=== PATIENT | female | born 1980 | race Caucasian/White ===

== ENCOUNTER → 2018-03-18 09:48 | Outpatient (CLI) | payer OTHER, SELFPAY | PROVIDERS: Visit Provider Physician Assistant | DX: R68.89 Other general symptoms and signs (principal) | CPT/HCPCS: 87400 ==

== ENCOUNTER 2020-05-30 15:29 | Observation (INO) | payer OTHER, SELFPAY ==
[2020-05-30] VITALS (8 sets, daily range): BP systolic 115–148; BP diastolic 55–85; PULSE 67–111; RESP 12–17; TEMP 36.2–36.9; O2SAT 95–99; BMI 29.0
--- NOTE | 2020-05-30 | PATH_ITS ---
[facility] Accession Number: [id number] . 01 Material submitted: . OVARY/FALLOPIAN TUBE - LEFT OVARY AND FALLOPIAN TUBE . 01 Clinical history: . SEND BY [facility] FOR POSSIBLE APPENDIX ISSUES . 02 Diagnosis: Left Ovary and Fallopian Tube, Salpingo-oophorectomy: 1. Mature cystic teratoma (dermoid cyst). 2. Fallopian tube with paratubal cyst. 3. No evidence of malignancy. MRV 06/06/2020 0920 Local . 02 Electronically signed: . Carmen Spann MD, Pathologist NPI- [id number] . 01 Gross description: . The specimen is received in formalin, labeled left ovary and tube and consists of multiple ley-pink cyst fragments measuring 10.0 x 9.0 x 5.0 cm in aggregate. The external surface is ley-pink and wrinkled. The inner lining is ley-pink and smooth to granular with no papillary excrescences. The cyst contains a ley-white sebaceous material admixed with ley-brown hair. The cyst also displays focal areas of bone. The wall thickness ranges from 0.1 to 0.3 cm. Also received is a 5.0 cm in length by 0.8 cm in diameter fallopian tube. The serosa is pink-purple and smooth with a 0.7 x 0.6 x 0.5 cm paratubal cyst. Sectioning reveals a ley mucosa and a stellate lumen measuring 0.3 cm in diameter. [employer] sections are submitted. . A1-A5: scheduling representative cyst (A5 following decalcification). A6: fallopian tube, margin (blue), central cross-sections and bisected fimbria. ([id number]) /MRV 06/05/2020 1414 Local . 02 Pathologist provided ICD-10: D27.9 . 02 CPT . 522046 Performed at: 01 [facility] [address] [place] [address], [place], [place] [id number] MD Benitez Mark MD Phone: [phone] Performed at: 02 [facility] [address] [place], [place] [id number] MD Carmen Spann MD Phone: [phone]
--- NOTE | 2020-05-30 15:38 | DI.CT.S_ITS ---
PROCEDURE: CT ABDOMEN PELVIS W CON INDICATIONS: Right lower quadrant abdominal pain eval for appy TECHNIQUE: After the administration of intravenous contrast, 5 mm thick sections acquired from the diaphragm to the symphysis. 5 mm coronal and sagittal reformats were acquired. For radiation dose reduction, the following was used: automated exposure control, adjustment of mA and/or kV according to patient size. COMPARISON: None. FINDINGS: Image quality: Excellent. ABDOMEN: Lung bases: Lung bases are clear. Heart size is normal. Solid organs: Liver is normal in size and enhancement. Gallbladder is unremarkable. Biliary system is non dilated. Pancreas enhances normally. Spleen is normal in size and enhancement. No adrenal nodules. Kidneys demonstrate normal size and enhancement, without hydronephrosis. Peritoneum and bowel: Bowel loops demonstrate normal wall thickness and caliber. The appendix is not dilated, (2/63). No free fluid or air. Nodes and vessels: No retroperitoneal or mesenteric adenopathy by size criteria. Aorta and inferior vena cava are normal in size. Miscellaneous: Tiny fat containing periumbilical hernia. PELVIS: Genitourinary: Bladder wall thickness is normal. Large midline pelvic mass which appears to originate from the left ovary measuring 9.4 x 8.9 x 8 cm, (2/72 and 5/46). The mass contains macroscopic fat and calcifications. The lesion is well-circumscribed and has mass effect on the urinary bladder. This is consistent with a mature teratoma. The right ovary appears normal. Miscellaneous: No inguinal hernias or adenopathy. Bones: No suspicious bony lesions. Minimal scoliosis. No vertebral body compression fractures. IMPRESSION: 1. Large pelvic mass measuring 9.4 cm containing macroscopic fat and calcifications. Imaging findings consistent with a mature teratoma. The mass is located midline and appears to originate off of the left ovary. This could predispose to ovarian torsion. If clinically indicated consider further evaluation with pelvic ultrasound Doppler. Gynecological consultation is recommended. 2. No free fluid is seen. 3. Normal appendix. Comment: Findings were discussed with Dr. Harley Lundy at the time of dictation. Dictated by: Jone Anders M.D. on 05/30/2020 at 16:53 Approved by: Jone Anders M.D. on 05/30/2020 at 17:03
--- NOTE | 2020-05-30 15:44 | ED.GENADULT ---
HPI - General Adult <Harley Lundy DO - Last Filed: 05/31/20 07:00> General Chief complaint: Abdominal Pain Stated complaint: sent by [facility] for possible appendix issues Time Seen by Provider: 05/30/20 15:36 Source: patient Mode of arrival: Ambulatory Limitations: no limitations History of Present Illness HPI narrative: Patient is a 39-year-old female was sent over from the walk-in clinic for evaluation of right lower quadrant/right-sided back pain. She states that the symptoms started a couple days ago has been worsening since then. She denies any fevers. No urinary symptoms. No change in bowel habits. No nausea vomiting. Had a uterine ablation several years ago so no longer has menstrual cycles. She is not on control. No prior abdominal surgeries. Related Data Home Medications Medication Instructions Recorded Confirmed No Known Home Medications 03/18/18 05/31/20 Allergies Allergy/AdvReac Type Severity Reaction Status Date / Time Penicillins Allergy rash Verified 05/30/20 15:39 Review of Systems <DO Colin Gonzales Last Filed: 05/31/20 07:00> Constitutional Constitutional: Denies fever(s) Cardiovascular Cardiovascular: Denies chest pain and Denies dyspnea Respiratory Respiratory: Denies dyspnea Gastrointestinal Gastrointestinal: Reports abdominal pain, Denies change in bowel habits, Denies nausea and Denies vomiting Genitourinary Genitourinary: Denies dysuria Genitourinary: Denies dysuria Musculoskeletal Musculoskeletal: Denies arthralgias and Denies myalgias Integumentary/Breasts Skin/Breast: Denies lesions and Denies rash Neurologic Neurologic: Denies behavioral changes Psychiatric Psychiatric: Denies behavioral changes Hematologic/Lymphatic On Anticoagulants: No Allergic/Immunologic Allergic/Immunologic: Denies urticaria Patient History <DO Colin Gonzales Last Filed: 05/31/20 07:00> Medical History (Updated 05/30/20 @ 18:40 by Harley Lundy DO) Healthy adult Surgical History (Updated 05/30/20 @ 20:59 by Prerna Fernández MD) History of endometrial ablation Social History household members: family Smoking Status: Current every day smoker alcohol intake: current Smoking Status: Current every day smoker Substance Use Type: does not use Exam <DO Colin Gonzales Last Filed: 05/31/20 07:00> Initial Vital Signs Initial Vital Signs: Vital Signs Temperature 98.4 F 05/30/20 15:37 Pulse Rate 111 H 05/30/20 15:37 Respiratory Rate 12 05/30/20 15:37 Blood Pressure 148/85 H 05/30/20 15:37 Pulse Oximetry 99 05/30/20 15:37 Const General: cooperative and comfortable Limitations: mental status not altered HENMT Head: normal to inspection and normocephalic Resp Effort & Inspection: normal respiratory effort Cardio Rate: tachycardic Rhythm: regular rhythm GI Inspection: non-distended Palpation: soft and tender (Right lower quadrant) Back/Spine/Pelvis Back: CVA tenderness right Skin Lesions: no lesions Rashes: no rashes Neuro General: patient alert and patient awake Cognition: normal cognition Speech: speech normal Extrem General: normal to inspection, capillary refill normal and No edema Psych Appearance: grossly normal and well kempt <Jimenez Crabtree DO - Last Filed: 05/31/20 00:24> Initial Vital Signs Initial Vital Signs: Vital Signs Temperature 98.4 F 05/30/20 15:37 Pulse Rate 111 H 05/30/20 15:37 Respiratory Rate 12 05/30/20 15:37 Blood Pressure 148/85 H 05/30/20 15:37 Pulse Oximetry 99 05/30/20 15:37 Course <Harley Lundy DO - Last Filed: 05/31/20 07:00> Orders Ordered: ED Orders 05/31/20 05:12 Complete Blood Count AUTO DIFF Routine Hydromorphone HCl (Hydromorphone 1 Mg Inj) 1 mg IV Q4HR PRN PRN Reason: Pain, Severe (7-10) Last Admin: 05/31/20 05:18 Dose: 1 mg Documented by: Admin: 05/31/20 00:45 Dose: 1 mg Documented by: SANDRA Lactated Ringer's (Lactated Ringers) 1,000 mls @ 100 mls/hr IV CONT JEAN PIERRE Last Admin: 05/31/20 00:45 Dose: 100 mls/hr Documented by: SANDRA Ketorolac Tromethamine (Ketorolac 30 Mg/Ml Vial) 30 mg IV Q6HR PRN PRN Reason: Pain, Moderate (4-6) Stop: 06/05/20 23:22 Naloxone HCl (Naloxone 0.4 Mg/Ml Vial) 0.2 mg IV Q2MIN PRN PRN Reason: Opiate Reversal Ondansetron HCl (Ondansetron 4 Mg/2 Ml Inj) 4 mg IV Q6HR PRN PRN Reason: Nausea And Vomiting Oxycodone/Acetaminophen (Oxycodone/Acetaminophen 5/325 Tablet) 2 tab PO Q4HR PRN PRN Reason: Pain, Severe (7-10) Last Admin: 05/31/20 03:35 Dose: 2 tab Documented by: SANDRA Discontinued Medications Acetaminophen (Acetaminophen 325 Mg Tablet) 650 mg PO PACUNOW PRN PRN Reason: Pain, Mild (1-3) Bupivacaine HCl/Epinephrine Bitart (Bupivacaine 0.5% W/ Epi (Pf) 30 Ml Vial) 30 ml INJ NOW ONE Stop: 05/30/20 22:37 Last Admin: 05/30/20 22:37 Dose: 10 ml Documented by: BEE Fentanyl (Fentanyl 100 Mcg/2 Ml Inj) 0 mcg IV Q5M PRN PRN Reason: Pain, Moderate (4-6) Last Admin: 05/30/20 23:37 Dose: 50 mcg Documented by: Admin: 05/30/20 23:31 Dose: 50 mcg Documented by: MIESHA Hydromorphone HCl (Hydromorphone 0.5 Mg Inj) 0.5 mg IV NOW ONE Stop: 05/30/20 19:20 Last Admin: 05/30/20 19:25 Dose: 0.5 mg Documented by: SHAKIRA Hydromorphone HCl (Hydromorphone 2 Mg Inj) 0 mg IV Q5MIN PRN PRN Reason: Pain, Mild (1-3) Lactated Ringer's (Lactated Ringers) 1,000 mls @ 100 mls/hr IV CONT [facility] Last Admin: 05/31/20 00:57 Dose: Not Given Documented by: SANDRA Lactated Ringer's (Lactated Ringers) 1,000 mls @ 42 mls/hr IV CONT JEAN PIERRE Last Admin: 05/31/20 00:57 Dose: Not Given Documented by: SANDRA Ketorolac Tromethamine (Ketorolac 60 Mg/2 Ml Vial) 30 mg IV NOW ONE Stop: 05/30/20 15:50 Last Admin: 02/25/21 16:05 Dose: 30 mg Documented by: MOY Ondansetron HCl (Ondansetron 4 Mg/2 Ml Inj) 4 mg IV NOW PRN PRN Reason: Nausea And Vomiting Oxycodone HCl (Oxycodone Ir 5 Mg Tablet) 5 mg PO PACUNOW PRN PRN Reason: Mild or moderate pain Last Admin: 05/30/20 23:30 Dose: 5 mg Documented by: MIESHA Vital Signs Vital signs: Vital Signs - 8 hr 05/30/20 23:20 05/30/20 23:25 05/30/20 23:35 Temperature 97.2 F L Pulse Rate 82 80 87 Respiratory Rate 12 14 13 Blood Pressure 116/55 L 115/70 119/67 Pulse Oximetry 96 97 99 05/30/20 23:50 Temperature Pulse Rate 84 Respiratory Rate 12 Blood Pressure 122/73 Pulse Oximetry 99 <Jimenez Crabtree, - Last Filed: 05/31/20 00:24> Course Course Narrative: Patient received in sign-out from Dr. Lundy, currently awaiting ultrasound results. Upon receipt of ultrasound I placed a call to gynecology who will take her to the OR Orders Ordered: ED Orders 05/31/20 05:12 Complete Blood Count AUTO DIFF Routine Hydromorphone HCl (Hydromorphone 1 Mg Inj) 1 mg IV Q4HR PRN PRN Reason: Pain, Severe (7-10) Last Admin: 05/31/20 05:18 Dose: 1 mg Documented by: Admin: 05/31/20 00:45 Dose: 1 mg Documented by: SANDRA Lactated Ringer's (Lactated Ringers) 1,000 mls @ 100 mls/hr IV CONT JEAN PIERRE Last Admin: 05/31/20 00:45 Dose: 100 mls/hr Documented by: SANDRA Ketorolac Tromethamine (Ketorolac 30 Mg/Ml Vial) 30 mg IV Q6HR PRN PRN Reason: Pain, Moderate (4-6) Stop: 06/05/20 23:22 Naloxone HCl (Naloxone 0.4 Mg/Ml Vial) 0.2 mg IV Q2MIN PRN PRN Reason: Opiate Reversal Ondansetron HCl (Ondansetron 4 Mg/2 Ml Inj) 4 mg IV Q6HR PRN PRN Reason: Nausea And Vomiting Oxycodone/Acetaminophen (Oxycodone/Acetaminophen 5/325 Tablet) 2 tab PO Q4HR PRN PRN Reason: Pain, Severe (7-10) Last Admin: 05/31/20 03:35 Dose: 2 tab Documented by: SANDRA Discontinued Medications Acetaminophen (Acetaminophen 325 Mg Tablet) 650 mg PO PACUNOW PRN PRN Reason: Pain, Mild (1-3) Bupivacaine HCl/Epinephrine Bitart (Bupivacaine 0.5% W/ Epi (Pf) 30 Ml Vial) 30 ml INJ NOW ONE Stop: 05/30/20 22:37 Last Admin: 05/30/20 22:37 Dose: 10 ml Documented by: BEE Fentanyl (Fentanyl 100 Mcg/2 Ml Inj) 0 mcg IV Q5M PRN PRN Reason: Pain, Moderate (4-6) Last Admin: 05/30/20 23:37 Dose: 50 mcg Documented by: Admin: 05/30/20 23:31 Dose: 50 mcg Documented by: MIESHA Hydromorphone HCl (Hydromorphone 0.5 Mg Inj) 0.5 mg IV NOW ONE Stop: 05/30/20 19:20 Last Admin: 05/30/20 19:25 Dose: 0.5 mg Documented by: SHAKIRA Hydromorphone HCl (Hydromorphone 2 Mg Inj) 0 mg IV Q5MIN PRN PRN Reason: Pain, Mild (1-3) Lactated Ringer's (Lactated Ringers) 1,000 mls @ 100 mls/hr IV CONT [facility] Last Admin: 05/31/20 00:57 Dose: Not Given Documented by: SANDRA Lactated Ringer's (Lactated Ringers) 1,000 mls @ 42 mls/hr IV CONT [facility] Last Admin: 05/31/20 00:57 Dose: Not Given Documented by: SANDRA Ketorolac Tromethamine (Ketorolac 60 Mg/2 Ml Vial) 30 mg IV NOW ONE Stop: 05/30/20 15:50 Last Admin: 05/30/20 16:05 Dose: 30 mg Documented by: MOY Ondansetron HCl (Ondansetron 4 Mg/2 Ml Inj) 4 mg IV NOW PRN PRN Reason: Nausea And Vomiting Oxycodone HCl (Oxycodone Ir 5 Mg Tablet) 5 mg PO PACUNOW PRN PRN Reason: Mild or moderate pain Last Admin: 05/30/20 23:30 Dose: 5 mg Documented by: MIESHA Vital Signs Vital signs: Vital Signs - 8 hr 05/30/20 23:20 05/30/20 23:25 05/30/20 23:35 Temperature 97.2 F L Pulse Rate 82 80 87 Respiratory Rate 12 14 13 Blood Pressure 116/55 L 115/70 119/67 Pulse Oximetry 96 97 99 05/30/20 23:50 Temperature Pulse Rate 84 Respiratory Rate 12 Blood Pressure 122/73 Pulse Oximetry 99 Medical Decision Making <Harley Lundy, DO - Last Filed: 05/31/20 07:00> Medical Records Medical records reviewed: Yes I reviewed the patient's medical records. Lab Data Lab results reviewed: Yes I reviewed the patient's lab results. Result diagrams: 05/31/20 05:12 05/30/20 15:42 Labs: Lab Results 05/30/20 05/30/20 05/30/20 Range/Units 15:42 15:42 15:42 WBC 11.6 H (4.5-11.0) X10^3/uL RBC 5.05 (4.0-5.2) X10^6/uL Hgb 15.4 (12.0-16.0) g/dL Hct 46.7 H (36-46) % MCV 92.6 (80-100) fL MCH 30.5 (26-34) PG MCHC 32.9 (30-36) % RDW 14.2 (11.6-14.8) % Plt Count 314 (150-400) X10^3/uL Neut % (Auto) 67.2 (50-75) % Lymph % (Auto) 23.3 L (25-40) % Elliott % (Auto) 7.4 (3-14) % Eos % (Auto) 1.6 L (2-4) % Baso % (Auto) 0.5 (0-2) % Neut # (Auto) 7800 H (1892-2411) /uL Lymph # (Auto) 2700 (8973-1654) /uL Elliott # (Auto) 900 (0-900) /uL Eos # (Auto) 200 (0-450) /uL Baso # (Auto) 100 (0-100) /uL Sodium 138 (137-145) mmol/L Potassium 3.8 (3.4-5.1) mmol/L Chloride 105 (98-107) mmol/L Carbon Dioxide 26 (22-32) mmol/L BUN 10 (7-17) mg/dL Creatinine 0.65 (0.52-1.04) mg/dL Estimated GFR > 60.0 (>60) mL/min BUN/Creatinine Ratio 15.4 (6-22) Glucose 95 (70-100) mg/dL Calcium 9.7 (8.4-10.2) mg/dL Total Bilirubin 0.3 (0.2-1.3) mg/dL AST 25 (14-36) IU/L ALT 18 (<35) IU/L Alkaline Phosphatase 69 (38-126) U/L Total Protein 8.4 H (6.3-8.2) g/dL Albumin 4.8 (3.5-5.0) g/dL Globulin 3.6 (1.7-4.1) g/dL Albumin/Globulin Ratio 1.3 (1.0-2.8) Lipase 87 (23-300) U/L Serum , Qual Negative (Negative) SARS-CoV-2 (PCR) (Negative) 05/30/20 Range/Units 20:17 WBC (4.5-11.0) X10^3/uL RBC (4.0-5.2) X10^6/uL Hgb (12.0-16.0) g/dL Hct (36-46) % MCV (80-100) fL MCH (26-34) PG MCHC (30-36) % RDW (11.6-14.8) % Plt Count (150-400) X10^3/uL Neut % (Auto) (50-75) % Lymph % (Auto) (25-40) % Elliott % (Auto) (3-14) % Eos % (Auto) (2-4) % Baso % (Auto) (0-2) % Neut # (Auto) (6281-1071) /uL Lymph # (Auto) (8558-7931) /uL Elliott # (Auto) (0-900) /uL Eos # (Auto) (0-450) /uL Baso # (Auto) (0-100) /uL Sodium (137-145) mmol/L Potassium (3.4-5.1) mmol/L Chloride (98-107) mmol/L Carbon Dioxide (22-32) mmol/L BUN (7-17) mg/dL Creatinine (0.52-1.04) mg/dL Estimated GFR (>60) mL/min BUN/Creatinine Ratio (6-22) Glucose (70-100) mg/dL Calcium (8.4-10.2) mg/dL Total Bilirubin (0.2-1.3) mg/dL AST (14-36) IU/L ALT (<35) IU/L Alkaline Phosphatase (38-126) U/L Total Protein (6.3-8.2) g/dL Albumin (3.5-5.0) g/dL Globulin (1.7-4.1) g/dL Albumin/Globulin Ratio (1.0-2.8) Lipase (23-300) U/L Serum , Qual (Negative) SARS-CoV-2 (PCR) Negative (Negative) Imaging Data CT scan - abdomen/pelvis: Radiologist's Impression: [address] [id number] Scan ReportSigned Patient: Marguerite Arrieta#: [id number]: 1980Acct:[id number]/Sex: 39 / FDate of Service: 05/30/20Loc: EDAccession Number: [id number] Procedure: CT abdomen pelvis w con Ordering Provider: Harley Lundy D.O. PROCEDURE: CT ABDOMEN PELVIS W CON INDICATIONS: Right lower quadrant abdominal pain eval for appy TECHNIQUE: After the administration of intravenous contrast, 5 mm thick sections acquired from the diaphragm to the symphysis. 5 mm coronal and sagittal reformats were acquired. For radiation dose reduction, the following was used: automated exposure control, adjustment of mA and/or kV according to patient size. COMPARISON: None. FINDINGS: Image quality: Excellent. ABDOMEN: Lung bases: Lung bases are clear. Heart size is normal. Solid organs: Liver is normal in size and enhancement. Gallbladder is unremarkable. Biliary system is non dilated. Pancreas enhances normally. Spleen is normal in size and enhancement. No adrenal nodules. Kidneys demonstrate normal size and enhancement, without hydronephrosis. Peritoneum and bowel: Bowel loops demonstrate normal wall thickness and caliber. The appendix is not dilated, (2/63). No free fluid or air. Nodes and vessels: No retroperitoneal or mesenteric adenopathy by size criteria. Aorta and inferior vena cava are normal in size. Miscellaneous: Tiny fat containing periumbilical hernia. PELVIS: Genitourinary: Bladder wall thickness is normal. Large midline pelvic mass which appears to originate from the left ovary measuring 9.4 x 8.9 x 8 cm, (2/72 and 5/46). The mass contains macroscopic fat and calcifications. The lesion is well-circumscribed and has mass effect on the urinary bladder. This is consistent with a mature teratoma. The right ovary appears normal. Miscellaneous: No inguinal hernias or adenopathy. Bones: No suspicious bony lesions. Minimal scoliosis. No vertebral body compression fractures. IMPRESSION: 1. Large pelvic mass measuring 9.4 cm containing macroscopic fat and calcifications. Imaging findings consistent with a mature teratoma. The mass is located midline and appears to originate off of the left ovary. This could predispose to ovarian torsion. If clinically indicated consider further evaluation with pelvic ultrasound Doppler. Gynecological consultation is recommended. 2. No free fluid is seen. 3. Normal appendix. Comment: Findings were discussed with Dr. Harley Lundy at the time of dictation. Dictated by: Jone Anders M.D. on 05/30/2020 at 16:53 Approved by: Jone Anders M.D. on 05/30/2020 at 17:03 MDM Narrative Medical decision making narrative: Patient's CT scan does show a fairly large midline teratoma which is most likely the cause of her symptoms however given the size of it and the fact that it seems to originate off of the left ovary an ultrasound was ordered to evaluate the ovaries further. Her labs are unremarkable. Care turned over to Dr. Crabtree to follow-up on ultrasound and disposition. <Jimenez Crabtree, - Last Filed: 05/31/20 00:24> Lab Data Labs: Lab Results 05/30/20 05/30/20 05/30/20 Range/Units 15:42 15:42 15:42 WBC 11.6 H (4.5-11.0) X10^3/uL RBC 5.05 (4.0-5.2) X10^6/uL Hgb 15.4 (12.0-16.0) g/dL Hct 46.7 H (36-46) % MCV 92.6 (80-100) fL MCH 30.5 (26-34) PG MCHC 32.9 (30-36) % RDW 14.2 (11.6-14.8) % Plt Count 314 (150-400) X10^3/uL Neut % (Auto) 67.2 (50-75) % Lymph % (Auto) 23.3 L (25-40) % Elliott % (Auto) 7.4 (3-14) % Eos % (Auto) 1.6 L (2-4) % Baso % (Auto) 0.5 (0-2) % Neut # (Auto) 7800 H (9787-3396) /uL Lymph # (Auto) 2700 (0029-3080) /uL Elliott # (Auto) 900 (0-900) /uL Eos # (Auto) 200 (0-450) /uL Baso # (Auto) 100 (0-100) /uL Sodium 138 (137-145) mmol/L Potassium 3.8 (3.4-5.1) mmol/L Chloride 105 (98-107) mmol/L Carbon Dioxide 26 (22-32) mmol/L BUN 10 (7-17) mg/dL Creatinine 0.65 (0.52-1.04) mg/dL Estimated GFR > 60.0 (>60) mL/min BUN/Creatinine Ratio 15.4 (6-22) Glucose 95 (70-100) mg/dL Calcium 9.7 (8.4-10.2) mg/dL Total Bilirubin 0.3 (0.2-1.3) mg/dL AST 25 (14-36) IU/L ALT 18 (<35) IU/L Alkaline Phosphatase 69 (38-126) U/L Total Protein 8.4 H (6.3-8.2) g/dL Albumin 4.8 (3.5-5.0) g/dL Globulin 3.6 (1.7-4.1) g/dL Albumin/Globulin Ratio 1.3 (1.0-2.8) Lipase 87 (23-300) U/L Serum , Qual Negative (Negative) SARS-CoV-2 (PCR) (Negative) 05/30/20 Range/Units 20:17 WBC (4.5-11.0) X10^3/uL RBC (4.0-5.2) X10^6/uL Hgb (12.0-16.0) g/dL Hct (36-46) % MCV (80-100) fL MCH (26-34) PG MCHC (30-36) % RDW (11.6-14.8) % Plt Count (150-400) X10^3/uL Neut % (Auto) (50-75) % Lymph % (Auto) (25-40) % Elliott % (Auto) (3-14) % Eos % (Auto) (2-4) % Baso % (Auto) (0-2) % Neut # (Auto) (6623-9301) /uL Lymph # (Auto) (1852-7615) /uL Elliott # (Auto) (0-900) /uL Eos # (Auto) (0-450) /uL Baso # (Auto) (0-100) /uL Sodium (137-145) mmol/L Potassium (3.4-5.1) mmol/L Chloride (98-107) mmol/L Carbon Dioxide (22-32) mmol/L BUN (7-17) mg/dL Creatinine (0.52-1.04) mg/dL Estimated GFR (>60) mL/min BUN/Creatinine Ratio (6-22) Glucose (70-100) mg/dL Calcium (8.4-10.2) mg/dL Total Bilirubin (0.2-1.3) mg/dL AST (14-36) IU/L ALT (<35) IU/L Alkaline Phosphatase (38-126) U/L Total Protein (6.3-8.2) g/dL Albumin (3.5-5.0) g/dL Globulin (1.7-4.1) g/dL Albumin/Globulin Ratio (1.0-2.8) Lipase (23-300) U/L Serum , Qual (Negative) SARS-CoV-2 (PCR) Negative (Negative) Discharge Plan Departure Patient Disposition: Admitted as Observation Clinical Impression: Teratoma of pelvis Admit Date/Time: 05/30/20 23:59 Admit Provider: Prerna Fernández
[2020-05-30] MEDS: KETOROLAC 60 MG/2 ML VIAL 30 MG IV (16:05)
[2020-05-30 16:14] LABS: Add Manual Diff / Slide Review NO; Basophils Absolute Auto 100 /uL (0-100); Basophils Percent Auto 0.5 % (0-2); Eosinophils Absolute Auto 200 /uL (0-450); Eosinophils Percent Auto 1.6 % (2-4); Hematocrit 46.7 % (36-46); Hemoglobin 15.4 g/dL (12.0-16.0); Lymphocytes Absolute Auto 2700 /uL (1100-4500); Lymphocytes Percent Auto 23.3 % (25-40); Mean Corpuscular HGB Conc 32.9 % (30-36); Mean Corpuscular Hemoglobin 30.5 PG (26-34); Mean Corpuscular Volume 92.6 fL (80-100); Monocytes Absolute Auto 900 /uL (0-900); Monocytes Percent Auto 7.4 % (3-14); Neutrophils Absolute Auto 7800 /uL (1500-7000); Neutrophils Percent Auto 67.2 % (50-75); Platelet Count 314 X10^3/uL (150-400); Red Blood Cell Count 5.05 X10^6/uL (4.0-5.2); Red Cell Distribution Width 14.2 % (11.6-14.8); White Blood Cell Count 11.6 X10^3/uL (4.5-11.0)
[2020-05-30 16:25] LABS: Pregnancy Test Serum,Qual Negative (Negative)
[2020-05-30 16:29] LABS: Alanine Aminotransferase 18 IU/L (<35); Albumin 4.8 g/dL (3.5-5.0); Albumin Globulin Ratio 1.3 (1.0-2.8); Alkaline Phosphatase 69 U/L (38-126); Aspartate Aminotransferase 25 IU/L (14-36); BUN Creatinine Ratio 15.4 (6-22); Bilirubin Total 0.3 mg/dL (0.2-1.3); Blood Urea Nitrogen 10 mg/dL (7-17); Calcium 9.7 mg/dL (8.4-10.2); Carbon Dioxide 26 mmol/L (22-32); Chloride 105 mmol/L (98-107); Estimated Glomerular Filt Rate > 60.0 mL/min (>60); Globulin 3.6 g/dL (1.7-4.1); Glucose 95 mg/dL (70-100); HEMOLYSIS < 15 (0-50); Lipase 87 U/L (23-300); Potassium 3.8 mmol/L (3.4-5.1); Sodium 138 mmol/L (137-145); Total Protein 8.4 g/dL (6.3-8.2)
--- NOTE | 2020-05-30 17:04 | DI.US.S_ITS ---
PROCEDURE: US PELVIC COMPLETE INDICATIONS: Right lower quadrant abdominal pain, eval for ovarian pathol TECHNIQUE: Real-time scanning was performed of the pelvic organs, with image documentation. Additional endovaginal scanning was necessary due to incomplete visualization of the adnexal and endometrial structures by transabdominal scanning. COMPARISON: [facility], CT, CT ABDOMEN PELVIS W CON, 05/30/2020, 16:41. FINDINGS: Uterus: Uterus is normal in size at 5.9 x 3.6 x 3.7 cm. The endometrium measures 4 mm in combined thickness. Ovaries: Right ovary measures 3.4 x 1.2 x 1.9 cm. The left ovary measures 10.0 x 9.0 x 2.6 cm. This includes a 9.7 x 9.0 x 10.6 cm ovarian complex heterogeneous solid and cystic mass seen on the comparison CT from earlier same day. No evidence of ovarian torsion. Other: No pathologic free abdominal or pelvic fluid. IMPRESSION: Large left ovarian mass. Technically indeterminate etiology and recommend gynecological consultation for further workup, as previously discussed on the prior CT. No evidence of ovarian torsion identified at this time. Unremarkable appearance of the right ovary. Dictated by: Sulaiman Aldrich M.D. on 05/30/2020 at 18:49 Approved by: Sulaiman Aldrich M.D. on 05/30/2020 at 18:52
[2020-05-30] MEDS: HYDROMORPHONE 0.5 MG INJ IV (19:25)
[2020-05-30 20:38] LABS: COVID19 -Nasal RAPID Negative (Negative)
--- NOTE | 2020-05-30 20:57 | P.HPOB_ITS ---
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) Narrative: Marguerite Arrieta is a 39 year old female admitted from the emergency room for pain and 10 cm left ovarian mass likely teratoma [facility], [facility] Medical History (Updated 05/30/20 @ 18:40 by Harley Lundy DO) Healthy adult Surgical History (Updated 05/30/20 @ 20:59 by Prerna Fernández MD) History of endometrial ablation Social History Smoking Status: Current every day smoker alcohol intake: current (occasionally) Meds Home Medications and Allergies Home Medications Medication Instructions Recorded Confirmed Type No Known Home Medications 03/18/18 03/18/18 History Allergies Allergy/AdvReac Type Severity Reaction Status Date / Time Penicillins Allergy rash Verified 05/30/20 15:39 Review of Systems Review of Systems Narrative: Patient complains of right lower quadrant pain. She denies any significant nausea. No urinary tract symptoms. No constipation or diarrhea. No vaginal bleeding. No unusual vaginal discharge. Patient does states she has some low back pain similar to when she had had prior ruptured ovarian cysts. ROS: Yes All systems reviewed with the patient and are negative except as otherw ise documented Exam Vital Signs (past 8 hours): - 05/30/20 15:37 05/30/20 19:51 Temperature 98.4 F Pulse Rate 111 H 89 Respiratory Rate 12 14 Blood Pressure 148/85 H 134/68 Pulse Oximetry 99 96 Oxygen Delivery Method Room Air Narrative Exam Narrative: HEENT exam within normal limits. Lungs are clear to auscultation and percussion. Heart is regular rate and rhythm no S3-S4 murmurs. Abdomen is soft with tenderness in the lower abdomen right greater than left without rebound. Pelvic exam was not performed. Extremities without edema and nontender. 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 Labs Result Diagrams: 05/30/20 15:42 05/30/20 15:42 Labs: Laboratory Results - last 24 hr 05/30/20 05/30/20 05/30/20 15:42 15:42 15:42 WBC 11.6 H RBC 5.05 Hgb 15.4 Hct 46.7 H MCV 92.6 MCH 30.5 MCHC 32.9 RDW 14.2 Plt Count 314 Neut % (Auto) 67.2 Lymph % (Auto) 23.3 L [place] % (Auto) 7.4 Eos % (Auto) 1.6 L Baso % (Auto) 0.5 Neut # (Auto) 7800 H Lymph # (Auto) 2700 [place] # (Auto) 900 Eos # (Auto) 200 Baso # (Auto) 100 Sodium 138 Potassium 3.8 Chloride 105 Carbon Dioxide 26 BUN 10 Creatinine 0.65 Estimated GFR > 60.0 BUN/Creatinine Ratio 15.4 Glucose 95 Calcium 9.7 Total Bilirubin 0.3 AST 25 ALT 18 Alkaline Phosphatase 69 Total Protein 8.4 H Albumin 4.8 Globulin 3.6 Albumin/Globulin Ratio 1.3 Lipase 87 Serum , Qual Negative SARS-CoV-2 (PCR) 05/30/20 20:17 WBC RBC Hgb Hct MCV MCH MCHC RDW Plt Count Neut % (Auto) Lymph % (Auto) [place] % (Auto) Eos % (Auto) Baso % (Auto) Neut # (Auto) Lymph # (Auto) [place] # (Auto) Eos # (Auto) Baso # (Auto) Sodium Potassium Chloride Carbon Dioxide BUN Creatinine Estimated GFR BUN/Creatinine Ratio Glucose Calcium Total Bilirubin AST ALT Alkaline Phosphatase Total Protein Albumin Globulin Albumin/Globulin Ratio Lipase Serum , Qual SARS-CoV-2 (PCR) Negative Assessment & Plan Assessment and plan (1) Teratoma of pelvis: Status: Acute Assessment & Plan narrative: Patient with right lower quadrant pain with CT and ultrasound suggestive of a left mature ovarian teratoma. Due to the patient's pain decision was made to proceed with removal. Patient is agreeable to laparoscopic left salpingo oophorectomy. Consent form was reviewed with the patient. Risk of damage to internal structures such as bowel, bladder, ureters that could require opening the abdomen repair additional surgery. Small risk of infection. Small risk of bleeding enough to require blood transfusion. Patient is agreeable to blood transfusion if necessary to save her life. Patient is reassured that her other ovary will maintain normal hormonal function. Risk of reaction to anesthesia or medication that could result in or permanent or partial disability. Consent form was signed and questions answered. COVID-19 COVID-19 status: Result pending Result date/Date tested (Pos, Neg/Pending): 05/30/20
--- NOTE | 2020-05-30 21:46 | PM.PREOP ---
Pre-operative Note COVID-19 COVID-19 status: Negative Result date/Date tested (Pos, Neg/Pending): 05/30/20 Interval Note History & Physical reviewed/Exam performed by Physician: Yes Changes to H&P: No
--- NOTE | 2020-05-30 22:30 | SUR.OPER ---
Lithotomy on padded OR bed, head on pillow, arms secured on padded arm boards at <90 degrees abduction. Legs secured in padded yellow fins stirrups.
[2020-05-30] MEDS: BUPIVACAINE 0.5% W/ EPI (PF) 30 ML VIAL INJ (22:37)
--- NOTE | 2020-05-30 23:23 | P.OP_ITS ---
Operative Date/Time/Diagnoses Date of procedure: 05/30/20 Time of procedure: 23:23 Pre-op diagnosis: Pelvic pain with large left ovarian teratoma Post-op diagnosis: same Procedure & Clinicians Procedure: Laparoscopic left salpingo oophorectomy Same procedure as scheduled: Yes Indications: Pelvic pain with large left teratoma Surgeon: Prerna Fernández Click Yes if Unassisted: Yes Anesthesia Type: General Operative Notes Findings: Left ovarian teratoma, normal right ovary in to, normal uterus, mild adhesions of the cecum to the pelvic sidewall, normal-appearing appendix, liver edge, bowel surface. No obvious internal hernia is or endometriosis. Closure Type: primary Specimen(s): other (Left tube and ovary) Estimated Blood Loss (mL): 10 Blood products transfused: none Procedure in detail: Patient was brought to the operating room where she underw ent general anesthesia. She was placed in low yellowfin stirrups and prepped and draped in usual sterile fashion. No antibiotics were indicated. Pulsatile stockings were in place and functional. Warming was with blankets. The area of the incisions were injected with half percent Marcaine with epinephrine. An incision was made in the umbilicus with a scalpel and carried down to the fascial layer which was incised transversely and held t with 0 Vicryl suture. Perineum was entered bluntly. The is on cannula was placed in the abdomen and the abdomen insufflated with CO2. 2 5 mm trochars were placed in the right and left lower quadrant under direct visualization after incising the skin. There did not appear to be any damage with placement of the trocars. The left fallopian tube was grasped and the infundibulopelvic ligament was cauterized and cut with the PK generator. Sequential bites S were taken along the broad ligament hugging the ovary. The utero-ovarian ligament and the fallopian tube at the junction a of the uterus were cauterized and cut freeing the tube and ovary from the uterus. Adequate hemostasis was obtained with the PK generator. The tube and ovary were placed in Endo-Catch bag and brought up through the umbilicus will incision. The ovary and contents was removed by morselization. The abdomen was reinsufflated and adequate hemostasis was noted. CO2 was allowed to escape from the abdomen. The trochars were removed. The fascial layer of the umbilicus was closed with the 0 Vicryl suture. The skin was closed with 4-0 monocryl. The patient went to recovery room in good condition. Counts of instruments and sponges were correct. Complications: none Post-operative Condition: stable Disposition: observation Plan for aftercare: Home in a.m. when ambulatory and tolerating regular diet
[2020-05-30] MEDS: OXYCODONE IR 5 MG TABLET PO (23:30)
[2020-05-30] MEDS: fentaNYL 100 MCG/2 ML INJ IV ×2 (23:31→23:37)
[2020-05-31] VITALS (10 sets, daily range): BP systolic 90–123; BP diastolic 44–73; PULSE 57–78; RESP 13–16; TEMP 36.4–36.8; O2SAT 96–99; BMI 29.0
[2020-05-31] MEDS: HYDROMORPHONE 1 MG INJ IV ×2 (00:45→05:18)
[2020-05-31] MEDS: LACTATED RINGERS 1,000 ML 100 ML IV (00:45)
--- NOTE | 2020-05-31 01:20 | PC.NURSE ---
Addendum entered by Karen Barron R.N. 05/31/20 05:24: 0515 Pt pain still not well controlled. Asking for break-through pain medicine, specifically dilaudid. Dilaudid administered. Assessed delma on bed, no signs of vaginal bleeding. Addendum entered by Karen Barron R.N. 05/31/20 03:38: 0330 Pt c/o shooting pain from vaginal ramirez to abdomen. Rates pain 6.5/10. Administered Percocet tablets PO. Original Note: 0012 Patient arrived on unit from PACU in stable condition. She is A/Ox4, on room air and has a right antecubital PIV that is saline-locked. She states her pain is currently 3/10. She has three large bandaids on her abdomen where laporoscopic entry was made; those are clean, dry and intact. Oriented patient to room and unit. Call light is within reach and bed alarm is on. 0100 Pt c/o worsening pain, but the pain is now in her vaginal ramirez/perineum. Rates pain 7/10. Dilaudid administered. No vaginal blood or spotting seen on bed delma.
[2020-05-31] MEDS: OXYCODONE/ACETAMINOPHEN 5/325 TABLET 2 TAB PO ×2 (03:35→09:51)
[2020-05-31 05:54] LABS: Add Manual Diff / Slide Review NO; Basophils Absolute Auto 0 /uL (0-100); Basophils Percent Auto 0.2 % (0-2); Eosinophils Absolute Auto 0 /uL (0-450); Hematocrit 41.3 % (36-46); Hemoglobin 13.7 g/dL (12.0-16.0); Lymphocytes Absolute Auto 600 /uL (1100-4500); Lymphocytes Percent Auto 4.7 % (25-40); Mean Corpuscular Hemoglobin 30.6 PG (26-34); Mean Corpuscular Volume 92.7 fL (80-100); Monocytes Absolute Auto 200 /uL (0-900); Monocytes Percent Auto 1.3 % (3-14); Neutrophils Absolute Auto 11900 /uL (1500-7000); Neutrophils Percent Auto 93.8 % (50-75); Platelet Count 270 X10^3/uL (150-400); Red Blood Cell Count 4.46 X10^6/uL (4.0-5.2); Red Cell Distribution Width 14.1 % (11.6-14.8); White Blood Cell Count 12.7 X10^3/uL (4.5-11.0)
--- NOTE | 2020-05-31 08:00 | P.DS_ITS ---
History of Present Illness History of Present Illness Date Patient Seen: 05/31/20 Time Patient Seen: 08:00 Chief complaint: sent by [facility] for appendix issues Narrative: Patient presented for right lower quadrant pain to the emergency room. She was found to have a 10 cm teratoma. She underwent a laparoscopic left salpingo oophorectomy. Patient states she is tolerating a regular diet. She is ambulatory. Pain is now under control. Discharge Providers Provider Date of admission: 05/30/20 23:59 Discharge Date: 05/31/20 Discharge provider: Prerna Fernández MD Summary Hospital Course Discharge Diagnosis: Left ovarian teratoma causing pelvic pain Hospital Course: Patient presented for right lower quadrant pain to the emergency room. She was found to have a 10 cm teratoma. She underwent a laparoscopic left salpingo oophorectomy. Patient states she is tolerating a regular diet. She is ambulatory. Pain is now under control. Status at Discharge Cognitive/behavioral status at discharge: oriented Overall status at discharge: patient is progressing back to baseline Time Spent with Patient Time spent: Less than 30 minutes Exam Vital Signs (past 8 hours): - 05/31/20 00:05 05/31/20 00:12 05/31/20 00:50 Temperature 97.9 F 98 F Pulse Rate 73 74 72 Respiratory Rate 16 16 16 Blood Pressure 109/73 123/73 102/62 Pulse Oximetry 99 99 97 05/31/20 01:52 05/31/20 02:10 05/31/20 03:30 Temperature 98 F 98.1 F 98.3 F Pulse Rate 72 74 78 Respiratory Rate 16 16 16 Blood Pressure 100/62 108/64 93/69 Pulse Oximetry 96 97 97 05/31/20 06:20 05/31/20 06:43 Temperature 98.2 F Pulse Rate 59 L 57 L Respiratory Rate 16 14 Blood Pressure 90/45 L 95/65 Pulse Oximetry 97 Oxygen Delivery Method Room Air Oxygen Flow Rate 0 Narrative Exam Narrative: Abdomen is soft with appropriate tenderness. Dressings are clean, dry, intact. Extremities without edema and nontender. Objective Labs Result Diagrams: 05/31/20 05:12 05/30/20 15:42 Labs: Laboratory Results - last 24 hr 05/30/20 05/30/20 05/30/20 15:42 15:42 15:42 WBC 11.6 H RBC 5.05 Hgb 15.4 Hct 46.7 H MCV 92.6 MCH 30.5 MCHC 32.9 RDW 14.2 Plt Count 314 Neut % (Auto) 67.2 Lymph % (Auto) 23.3 L [place] % (Auto) 7.4 Eos % (Auto) 1.6 L Baso % (Auto) 0.5 Neut # (Auto) 7800 H Lymph # (Auto) 2700 [place] # (Auto) 900 Eos # (Auto) 200 Baso # (Auto) 100 Sodium 138 Potassium 3.8 Chloride 105 Carbon Dioxide 26 BUN 10 Creatinine 0.65 Estimated GFR > 60.0 BUN/Creatinine Ratio 15.4 Glucose 95 Calcium 9.7 Total Bilirubin 0.3 AST 25 ALT 18 Alkaline Phosphatase 69 Total Protein 8.4 H Albumin 4.8 Globulin 3.6 Albumin/Globulin Ratio 1.3 Lipase 87 Serum , Qual Negative SARS-CoV-2 (PCR) 05/30/20 05/31/20 20:17 05:12 WBC 12.7 H RBC 4.46 Hgb 13.7 Hct 41.3 MCV 92.7 MCH 30.6 MCHC 33.0 RDW 14.1 Plt Count 270 Neut % (Auto) 93.8 H D Lymph % (Auto) 4.7 L [place] % (Auto) 1.3 L Eos % (Auto) 0.0 L Baso % (Auto) 0.2 Neut # (Auto) 46873 H Lymph # (Auto) 600 L [place] # (Auto) 200 Eos # (Auto) 0 Baso # (Auto) 0 Sodium Potassium Chloride Carbon Dioxide BUN Creatinine Estimated GFR BUN/Creatinine Ratio Glucose Calcium Total Bilirubin AST ALT Alkaline Phosphatase Total Protein Albumin Globulin Albumin/Globulin Ratio Lipase Serum , Qual SARS-CoV-2 (PCR) Negative [facility] Medical History (Updated 05/30/20 @ 18:40 by Harley Lundy DO) Healthy adult Surgical History (Updated 05/30/20 @ 20:59 by Prerna Fernández MD) History of endometrial ablation Social History household members: family Smoking Status: Current every day smoker alcohol intake: current Discharge Assessment & Plan Assessment and Plan Assessment: Postop laparoscopic left salpingo oophorectomy for teratoma Plan of Treatment: Patient was discharged home to be followed up in 1 week. Routine precautions r eviewed with the patient. Discharge Plan Discharge Plan Patient Disposition: Home Discharge orders & Medications Prescriptions: New oxycodone-acetaminophen 5-325 mg Tablet 1 tab PO Q4HR PRN (Reason: Pain, Severe (7-10)) Qty: 30 RF: 0 Follow up/Referrals: Prerna Fernández MD [Physician] - 1 Week Diet/Activity/Treatments Diet: Regular Activity: No restrictions except do not drive within 4 hours of taking narcotic pain medicine Skin/Wound/Dressing Care Report to your healthcare provider any signs of infection, such as:: chills, fever, increased pain and unusual redness Visit Report/Discharge Packet Instructions: DI for Laparoscopy, DI for Pelvic Pain, DI for Prescription Opioid Use Stand Alone Forms: Surgery Discharge Discharge Data Attending Provider: Prerna Fernández
--- NOTE | 2020-05-31 10:40 | PC.NURSE ---
Assess- Patient is A&Ox3, she has 3 small incisions with band aides to her lower abdomen. Complained of pain /, just given 2 oxycodone and helpful for pain. Blood Pressure has been running a bit low 90s/40s and, 90s/37, and 89/50. She just ambulated in the halls with [employer] and denies any nausea, dizziness, or light headedness. She states that she just has some discomfort to her lower abdomen. BT +x4, and patient tolerated her breakfast this morning. She has also voided and is using call hernandez appropriately.
--- NOTE | 2020-05-31 11:12 | CM.DANOTE ---
Discharge Planning/Care Management DCP: assessment: case received, EMR reviewed and d/c order noted. Went to room about 0900 to meet pt. Introduced self and role. Pt confirmed she was up and ambulating, felt good that she could go home today and that her mother was picking her up at 1130. Clinic followup with Dr. Fernández was planned. Payer: Sujatha MENDOZA CM Discharge Assessment Start: 05/31/20 11:11 Freq: Status: Active Protocol: Document 05/31/20 11:12 ITV (Rec: 05/31/20 11:12 ITV [id number]) Discharge Planning Assessment Advance Directives? No History Provided By Patient,Medical Record Prior Living Arrangements House Household Members family Independent with ADL's Yes Is patient alert and oriented? Yes Discharge Plan Home
--- NOTE | 2020-06-04 20:57 | PC.NURSE ---
Late Entry; LR infusion initiated 05/31 at 00:45, complete at 10:46.
== END 2020-05-31 11:50 | disposition home or self-care (01) ==
LOC: ED 19:44 → AC 23:59
PROVIDERS: Emergency Medicine; Admitting Provider Specialist; Emergency Provider Emergency Medicine; Visit Provider Specialist
PROC: (CPT 58661; principal; 2020-05-30 22:00)
DX: D27.1 Benign neoplasm of left ovary (principal); K66.0 Peritoneal adhesions (postprocedural) (postinfection); F17.210 Nicotine dependence, cigarettes, uncomplicated; Z20.822 Contact with and (suspected) exposure to COVID-19
CPT/HCPCS: 58661; 36415; 74177; 76830; 76856; 80053; 83690; 84703; 85025; 87635; 96361; 96374; 96375; 96376; 99218; 99284; C9803; G0378; J1100; J1170; J1885; J2405; J2704; J3010; Q9967

== ENCOUNTER → 2020-08-09 15:03 | Outpatient (CLI) | payer BC, SELFPAY ==
[2020-05-31 00:20] VITALS: BMI 29.0
--- NOTE | 2020-08-09 15:04 | DI.US.S_ITS ---
PROCEDURE: US PELVIC COMPLETE INDICATIONS: RIGHT SIDED PELVIC PAIN TECHNIQUE: Real-time scanning was performed of the pelvic organs, with image documentation. Additional endovaginal scanning was necessary due to incomplete visualization of the adnexal and endometrial structures by transabdominal scanning. COMPARISON: [facility], US, US PELVIC COMPLETE, 05/30/2020, 17:25. FINDINGS: Uterus: Uterus is normal in size at 6.3 x 4.3 x 2.9 cm. The endometrium measures 3 mm in combined thickness. Ovaries: Left ovary surgically absent. Right ovary measures 5.3 x 3.2 x 2.6 cm. There is a 1.6 x 1.8 x 1.2 cm cyst with low level echoes presumably hemorrhagic cyst. Additional nonspecific heterogeneous lesion with isoechoic appearance and associated vascularity measuring 2.1 x 1.2 x 1.5 cm. Other: No pathologic free abdominal or pelvic fluid. IMPRESSION: Complex right ovarian cysts as detailed above which are technically nonspecific. These could be physiologic/hemorrhagic or involuting follicles although indeterminate. Given right-sided symptoms recommend follow-up in 6 weeks to document resolution. Dictated by: Sulaiman Aldrich M.D. on 08/09/2020 at 16:14 Approved by: Sulaiman Aldrich M.D. on 08/09/2020 at 16:17
== END ==
PROVIDERS: PCP Registered Nurse Diabetes Educator; Referring Provider Specialist; Visit Provider Specialist
DX: R10.2 Pelvic and perineal pain (principal); N83.291 Other ovarian cyst, right side; Z87.42 Personal history of other diseases of the female genital tract
CPT/HCPCS: 76830; 76856

== ENCOUNTER → 2020-12-11 13:53 | Outpatient (CLI) | payer BC, SELFPAY ==
[2020-05-31 00:20] VITALS: BMI 29.0
[2020-12-11 14:57] LABS: COVID19 -Nasal RAPID Negative (Negative)
== END ==
PROVIDERS: PCP Registered Nurse Diabetes Educator; Visit Provider Physician Assistant
DX: Z20.822 Contact with and (suspected) exposure to COVID-19 (principal)
CPT/HCPCS: 87635